=== PATIENT | female | born 2005 | race Caucasian/White ===

== ENCOUNTER 2025-10-06 08:15 | Emergency (ER) | payer OTHER, SELFPAY ==
[2025-10-06] VITALS (21 sets, daily range): BP systolic 84–104; BP diastolic 52–73; PULSE 44–60; BMI 22.0
[2025-10-06 09:03] LABS: Hematocrit 38.4 % (37.0-47.0); Hemoglobin 13.1 g/dL (12.0-16.0); Mean Corp Hgb Conc. 34.1 g/dL (33.0-37.0); Mean Corpuscular Volume 90.4 fL (81.0-99.0); Nucleated Red Blood Cells % 0 %; Platelet Count 183 10^3/uL (130-400); Red Cell Dist. Width 12.1 % (11.5-14.5)
[2025-10-06 09:14] LABS: D-Dimer 0.51 ug/mlFEU (0.00-0.50)
[2025-10-06 09:21] LABS: Blood Urea Nitrogen 21 mg/dl (7-17); Calcium 9.1 mg/dl (8.4-10.2); Carbon Dioxide 29 mmol/L (22-30); Chloride 104 mmol/L (98-107); Estimated Creatinine Clearance 104 ml/min; Glucose 101 mg/dl (70-99); Sodium 136 mmol/L (135-145); eGFR > 60.00
--- NOTE | 2025-10-06 10:04 | ED.GENMED ---
History of Present Illness
General
Chief Complaint: Fainting/Passed Out
Source: patient and family
Exam Limitations: none
Time Seen by Provider: 10/06/25 08:21
Nursing documentation reviewed up to this point in time: agreed with
History of Present Illness
History of Present Illness:
Patient is a 20-year-old female who presents to the ER for evaluation of syncope. Patient reports this morning she walked to the bathroom to have a bowel movement and urinate and felt very dizzy sweaty felt lightheaded and believes she may have
lowered her self to the floor. Mom reports patient was calling her name and in the hallway and had a witnessed syncopal episode in front of her.
Patient presents to the ER hypertensive and bradycardic in the 40s.
Patient was going to come to the ER yesterday because she had pain in her left posterior scapular armpit area. She denies any injury to this area she denies any associated chest pain. She denies any shortness of breath. She smokes occasionally.
She is not on oral contraceptives. No family history of DVT PE.
She does mention that she has had issues with eating disorder however has a rn tele in college and believes she is doing well with that. She does have a history of irregular periods.
Phy Exam
General Physical Exam
General Presentation: no apparent distress
General age: appears stated age
General Skin: warm and dry
General Habitus: normal
General Mental: alert
General Hydration: dry mucous membranes
Cardiovascular Exam
Cardiovascular Exam: bradycardia
Pulmonary Exam
Pulmonary Exam: lungs clear and no respiratory distress
Neurological Exam
Neurological Exam: alert, oriented x3, no motor deficits and no sensory deficits
Musculoskeletal Exam
Musculoskeletal Exam: full ROM
Skin Exam
Skin Exam: normal color and warm/dry
Psychiatric Exam
Psychiatric Exam: normal mood/affect
Course
Orders/Labs/Results
Orders:
Orders
10/06/25 08:32
EKG [Electrocardiogram (*1)] Urgent
Reason for Study: Syncope
10/06/25 08:33
EKG- Treatment ONCE
10/06/25 08:41
Orthostatic VS- Treatment ONCE
10/06/25 08:53
Basic Metabolic Panel Urgent
Complete Blood Count/With Diff Urgent
TSH Reflex To Free T4 Urgent
10/06/25 08:55
D-Dimer Urgent
10/06/25 10:44
HCG, Serum Qualitative Screen Urgent
Comment: ADD ON
Potassium Urgent
10/06/25 10:54
Add On- LAB Urgent
Tests Added?: hcg qualitative
10/06/25 11:02
CT Chest PE Study Urgent
Comment:
Reason For Exam: left scapula pain /syncope
Abnormal Lab Results
10/06/25 10/06/25
08:53 08:55
WBC 4.5 L 10^3/uL
(4.8-10.8)
D-Dimer 0.51 H ug/mlFEU
(0.00-0.50)
BUN 21 H mg/dl
(7-17)
Glucose 101 H mg/dl
(70-99)
10/06/25 08:53
10/06/25 10:44
Vital Signs
Initial and Last Documented VS:
Initial Vital Signs
Pulse Resp BP
47 13 91/57
10/06/25 08:24 10/06/25 08:24 10/06/25 08:24
Last Documented Vital Signs
Temp Pulse Resp BP Pulse Ox
98.1 F 83 14 96/53 100
10/06/25 08:45 10/06/25 11:53 10/06/25 11:53 10/06/25 12:20 10/06/25 12:30
MDM/Problems Addressed
Differential Diagnosis Includes:
Not limited to syncope vasovagal symptoms.
MDM/Problems Addressed:
As documented patient is a 20-year-old female who had a syncopal episode this morning after using the bathroom. She felt like she was going to pass out dizzy became diaphoretic excetra. She presented to the ER awake alert no acute distress she was
bradycardic and mildly hypotensive. Patient was given fluids and monitored here heart rate and blood pressure have improved. She had no chest pain. She had pain under the armpit left scapular area and therefore CAT scan was ordered(D-dimer was
minimally elevated) CAT scan negative for PE CAT scan incidentally does show bullous changes in the right middle lobe and small in the left lower lobe. She does report she used to vape in high school but no longer raised. She smokes marijuana
occasionally.
Case reviewed ED physician case reviewed with cardiology on-call who feels this is likely vasovagal. She is young healthy female. She has a history of any sort in the past however that has improved. She has no electrolyte abnormalities on labs.
Stable for discharge home with outpatient follow-up with family doctor. Mom is in the process of getting patient new family doctor. With findings on CAT scan of bullous changes will also refer to pulmonology as needed and cardiology as needed.
Chronic conditions affecting care:
hx of eating disorder in the past
*Radiology
Radiology exam reviewed: radiology read reviewed
*Pulse Oximetry
SaO2: 100
Oxygen Mode of Delivery: Room air
Patient hypoxic: no
*EKG
Interpreted by ED Provider?: Yes
Heart Rate: 46
Rate: bradycardiac
Rhythm: sinus
Ischemia: no ischemia
*Critical Care Note
Total Time (30-74mins, 75-104mins- exclusive of procedures): Not Applicable
Patient Management
Discussion with other providers: [facility] [employer] (cardiology, DR Reed )
ED Attending Note
-
Portions of this chart may have been created with voice recognition software.� Occasional wrong word or��sound alike� substitutions may have occurred due to the inherent limitations of voice recognition software.
Discharge Plan
Departure
Patient Disposition: Home (Routine Discharge)
Date of Disposition: 10/06/25
Time of Disposition: 13:07
Patient with high blood pressure during this ER visit?: No
Condition: Fair
Covid-19: Not Applicable
Discharge Problem:
Vasovagal episode, Syncope
Instructions: Syncope (Fainting) (DC)
Referrals:
NONE,* [Family Provider, Internal Medicine]
Vincenzo Reed MD [Active, Cardiology]
Myles Bowen MD [Active, Pulmonary Medicine]
Activity Restrictions/Additional Instructions:
As discussed stay well hydrated. Please follow-up with family doctor in the next Ambar days if possible for reevaluation of symptoms. In addition please follow-up with pulmonology for CAT scan findings and cardiology if needed.
Interventions
Interventions:
*Risk Screen - Suicide Last Done: 10/06/25 08:45
*General Assessment Last Done: 10/06/25 08:45
*Neglect/Abuse Screening Last Done: 10/06/25 08:45
*ED COVID-19 Vaccine History Last Done: 10/06/25 09:01
*ED Influenza Vaccine History Last Done: 10/06/25 09:01
ED- Cardiac Assessment Last Done: 10/06/25 08:59
ED- Neurological Assessment Last Done: 10/06/25 08:59
Discharge Date and Time
Print Language: IRISH
[2025-10-06 10:58] LABS: Potassium 4.4 mmol/L (3.5-5.1)
[2025-10-06 11:57] LABS: HCG, Serum Qualitative Screen Negative
== END 2025-10-06 13:30 | disposition home or self-care (01) ==
LOC: EMR 08:15
PROVIDERS: Nurse Practitioner; EMERGENCY PHYSICIAN Emergency Medicine
DX: R55 Syncope and collapse (principal); R00.1 Bradycardia, unspecified; F12.90 Cannabis use, unspecified, uncomplicated; Z86.59 Personal history of other mental and behavioral disorders
CPT/HCPCS: 99284; 71275; 80048; 84132; 84443; 84703; 85025; 85379; 93005; Q9967